=== PATIENT | male | born 1940 | race Caucasian/White ===

== ENCOUNTER 2016-10-19 09:23 | Outpatient (CLI) | payer MEDICARE ==
[~2016-10-19] VITALS: Ht 180.3 cm; Wt 1066.8 kg
[~2016-10-19 09:23] MED LIST: ASCORBIC ACID500 MG PO; ASPIRIN81 MG PO; CELEXA20 MG PO; DESERYL100 MG PO; DIOVAN160 MG PO; DIOVAN80 MG PO; GUAIFENESI100 MG/5 M PO; HCTZ25 MG PO; HYDROCODONE-APA1 TAB PO; IBUPROFEN400 MG PO; KADIAN10 MG PO; KADIAN30 MG PO; LIPITOR10 MG PO; LIPITOR20 MG PO; MULTI-DAY VITAM1 TAB PO; OXYCONTIN10 MG PO; TYLENOL PM1 TAB PO; ULTRAM50 MG PO; VITAMIN B COMPL1 TAB PO; VITAMIN B-121000 MCG PO; VITAMIN D31000 UNIT PO; ZYRTEC10 MG PO
[2016-10-19 10:08] VITALS: BP 120/73; Ht 180.3 cm; Wt 1066.8 kg
--- NOTE | 2016-10-19 12:17 | NUR ---
1205-IV INFUSION COMPLETED. IV D/C. 1216-DISCHARGE INSTRUCTIONS REVIEWED, D/C HOME AMBULATORY.
== END 2016-10-19 12:16 | disposition home or self-care (01) ==
LOC: D.OPS 09:23
DX: Z95.2 Presence of prosthetic heart valve (principal)

== ENCOUNTER 2017-01-30 06:12 | Day surgery (SDC) | payer MEDICARE ==
[2017-01-29 09:23] LABS: HEMATOCRIT 41.4 % (42.0-54.0); MCH 31.4 pg (26.0-34.0); MCHC 33.8 g/dL (31.0-37.0); MCV 92.8 fL (80.0-100.0); MEAN PLATELET VOLUME 9.5 fL (7.4-10.4); RBC 4.46 10x6/uL (4.20-6.10); RDW 12.6 % (11.5-14.5); WBC 5.6 10x3/uL (4.8-10.8)
[~2017-01-30 06:12] MED LIST changes: +BACTRIM DS TABL1 TAB PO; +PERCOCET 10/3251 TA1 PO; +TRAZODONE HCL50 MG PO
[2017-01-30 13:22] VITALS: BP 109/76; BMI 32.6
--- NOTE | 2017-01-30 15:46 | NUR ---
C/O PAIN LEVEL 10 TO HIP, IBRAHIMA ALLEN RN IN ROOM TALKING TO PATIENT ABOUT WAIT, LIZETT MURILLO RN ALSO SPOKE WITH PATIENTABOUT WAIT TIME
--- NOTE | 2017-01-30 19:48 | NUR ---
191 IV DC WITH CATHER TIP INTACT
--- NOTE | 2017-01-31 08:04 | OP ---
PATIENT NAME: ANN VELA MEDICAL RECORD: [id number] :41 LOCATION:D.FORMERLY [facility] ADMISSION DATE: SURGEON: ALEXI MILLER MD DATE OF OPERATION: 01/30/2017 SURGEON: Dr. Alexi Miller. ANESTHESIA: MAC by Magnus Stearns CRNA. PREOPERATIVE DIAGNOSIS: Elevated PSA 5.8. PROCEDURE: Transrectal ultrasound and prostate biopsy. FINDINGS: A 42 gram prostate with hypoechoic areas scattered throughout the prostate. SPECIMENS: Prostate biopsy cores. ESTIMATED BLOOD LOSS: None. CLINICAL HISTORY: This is a 76-year-old male with an elevated PSA of 5.8. On rectal examination, he has a nodule at the left apex of the prostate. He does not know his family history. He comes now to have a transrectal ultrasound and prostate biopsy. He is not allergic to any medications. He was given Ancef 2 grams IV manager environmental to the OR. He has also been taking Bactrim prophylaxis at home. He also had an enema last night to clean his rectum out. DESCRIPTION OF PROCEDURE: The patient was given IV sedation. He was then placed into dorsal lithotomy position and prepped and draped. The ultrasound probe was placed through the rectum and measurements of the prostate size were obtained. We detected several hypoechoic areas. Sextant biopsies were obtained. I obtained numerous samples from each sextant. I especially focused on the left apex where the palpable nodule was. I also tried in the other Sextants to obtain as much of the hypoechoic areas as possible. Once the procedure was done, the patient was awakened and brought to the preop holding area. TRANSINT:[id number] Voice Confirmation ID: [id number] DOCUMENT ID: [id number] ALEXI MILLER MD at 0804 CC: [id number] DICTATION DATE: 01/30/17 1847 CLINICAL DIETICIAN: 01/30/17 193 [facility] 01/30/17 [address] [place] [address]
== END 2017-01-30 19:45 | disposition home or self-care (01) ==
LOC: D.OPS 06:12 → D.PAN 15:00 → D.OPS 15:00
PROVIDERS: Urology
DX: R97.20 Elevated prostate specific antigen [PSA] (principal); I10 Essential (primary) hypertension; I35.1 Nonrheumatic aortic (valve) insufficiency; Z01.812 Encounter for preprocedural laboratory examination

== ENCOUNTER → 2017-02-13 09:41 | Outpatient (CLI) | payer MEDICARE ==
[2017-01-30 13:22] VITALS: BMI 32.6
== END | disposition home or self-care (01) ==
LOC: D.NM 09:41
DX: C61 Malignant neoplasm of prostate (principal)

== ENCOUNTER 2017-10-02 09:50 | Outpatient (CLI) | payer MEDICARE ==
[~2017-10-02] VITALS: Ht 188 cm; Wt 104.5 kg
[2017-10-02 10:57] VITALS: BP 121/71; Ht 188 cm; Wt 104.5 kg
== END 2017-10-02 13:10 | disposition home or self-care (01) ==
LOC: D.OPS 09:50
DX: Z95.2 Presence of prosthetic heart valve (principal)

== ENCOUNTER → 2018-10-02 09:34 | Outpatient (CLI) | payer MEDICARE ==
[2017-10-02 10:57] VITALS: BMI 29.6
== END | disposition home or self-care (01) ==
LOC: D.OPS 09:34
PROVIDERS: ATTEND Internal Medicine Cardiovascular Disease
DX: Z95.2 Presence of prosthetic heart valve (principal)

== ENCOUNTER 2018-11-26 10:15 | Outpatient (CLI) | payer MEDICARE ==
[~2018-11-26] VITALS: Ht 177.8 cm; Wt 104.1 kg
[2018-11-26 10:54] VITALS: BP 143/86; Ht 177.8 cm; Wt 104.1 kg
--- NOTE | 2018-11-26 13:39 | NUR ---
1330 ANTIBIOTICS HAVE INFUSED. PT DENIES ANY ITCHING OR RASHES. NO AIRWAY COMPLAINTS. PT STATES HE IS READY TO BE DISCHARGED AND GO TO [facility].
== END 2018-11-26 13:40 | disposition home or self-care (01) ==
LOC: D.OPS 10:15
PROVIDERS: ATTEND Internal Medicine Cardiovascular Disease
DX: Z95.2 Presence of prosthetic heart valve (principal)

== ENCOUNTER → 2020-08-24 09:06 | Outpatient (CLI) | payer MEDICARE ==
[~2020-08-24] VITALS: Ht 177.8 cm; Wt 107.7 kg
[2020-08-24 09:43] VITALS: Ht 177.8 cm; Wt 107.7 kg
--- NOTE | 2020-08-24 10:46 | NUR ---
1045 GENTAMICIN INFUSING PER ALARUS PUMP WITHOUT DIFFICULTY. LUNCH TRAY ORDERED. RANJAN Ayon
--- NOTE | 2020-08-24 13:29 | NUR ---
1114 GENTAMICIN INFUSION COMPLETED. VANCOMYCIN 1 GM/250ML 0.9% NACL UP & INFUSING PER ALARUS PUMP @ 125ML/HR. Danielle Blanchard.NPedro 1130 SERVED REGULAR DIET. RESTING QUIETLY IN BED WITH VANCOMYCIN INFUSING. NO COMPLAINTS OR REQUESTS VOICED. @ BEDSIDE. Danielle Blanchard.N. 1230 VANCOMYCIN CONTINUES TO INFUSE PER ALARUS PUMP @ 125ML/HR. RESTING QUIETLY IN BED. Danielle CORDOVA R.N. 1315 VANCOMYCIN INFUSION COMPLETED. IV DC'ED WITH CATH INTACT BY Cassidy PAUL R.N. PROVIDED WITH D/C INSTRUCTIONS. VOICED UNDERSTANDING. RELEASED AMBULATORY FROM OPS. TO SCHEDULED DENTAL APPOINTMENT. Danielle CORDOVA R.N.
== END | disposition home or self-care (01) ==
LOC: D.OPS 09:06
PROVIDERS: ATTEND Internal Medicine Cardiovascular Disease
DX: Z95.4 Presence of other heart-valve replacement (principal)